=== PATIENT | male | born 1960 | race African-American/Black ===

== ENCOUNTER 2021-11-01 17:13 | Emergency (ER) | payer OTHER ==
[~2021-11-01] VITALS: Ht 175.3 cm; Wt 118.2 kg
[2021-11-01] MEDS ORDERED: MethylPREDNISolone SOD SUCC 125 MG/2 ML VIAL IVP ONE (17:45)
[2021-11-01] MEDS ORDERED: IPRATROPIUM BROMIDE 0.5 MG/2.5 ML NEB SOLUTION NEB ONE (17:45)
[2021-11-01] MEDS ORDERED: ALBUTEROL SULFATE 5 MG/ML 20 ML NEB SOLN [BULK] NEB ONE (17:45)
[2021-11-01] MEDS ORDERED: FUROSEMIDE 40 MG/4 ML VIAL IVP ONE (17:45)
[2021-11-01 17:51] LABS: BASOPHILS % (AUTO) 0.3 % (0.0-2.0); COVID AG,FIA SOURCE NASOPHARYNGEAL; EOSINOPHILS % (AUTO) 1.5 % (1.0-6.0); HEMOGLOBIN 12.1 g/dL (13.5-17.5); LYMPHOCYTES # (AUTO) 0.8 K/uL (1.0-4.8); LYMPHOCYTES % (AUTO) 13.1 % (22.0-44.0); MEAN CORPUSCULAR HEMOGLOBIN 28.9 pg (26.0-34.0); MEAN CORPUSCULAR HGB CONC 32.7 G/dL (31.0-37.0); MEAN CORPUSCULAR VOLUME 88 fL (80-100); MONOCYTES # (AUTO) 0.3 K/uL (0.1-1.0); NEUTROPHILS # (AUTO) 4.8 K/uL (1.8-7.7); NEUTROPHILS % (AUTO) 80.1 % (40.0-70.0); PLATELET COUNT (AUTO) 127 K/uL (150-450); RED CELL DISTRIBUTION WIDTH 16.4 % (11.5-14.5)
[2021-11-01] MEDS ORDERED: 0.9% SODIUM CHLORIDE 15 ML NEB SOLUTION NEB ONE (17:55)
[2021-11-01 17:59] LABS: CALCIUM, TOTAL 8.7 mg/dL (8.8-10.5); CREATININE 2.21 mg/dL (0.60-1.30)
[2021-11-01 18:05] LABS: ALBUMIN 2.9 g/dL (3.4-5.0); BILIRUBIN,TOTAL 0.9 mg/dL (0.1-1.0)
[2021-11-01 18:10] LABS: LACTIC ACID 1.5 mmol/L (0.4-2.0)
[2021-11-01 18:18] LABS: INFLUENZA TYPE A NEGATIVE FOR TYPE A (NEGATIVE); INFLUENZA TYPE B NEGATIVE FOR TYPE B (NEGATIVE)
[2021-11-01] MEDS: OXYGEN THERAPY IH SCH (19:17)
[2021-11-01] MEDS ORDERED: ASPIRIN 325 MG TABLET PO ONE (20:30)
[2021-11-01 20:39] LABS: ABG BASE EXCESS 1.4 mmol/L (-2.0-3.0); ABG CARBOXYHEMOGLOBIN 1.1 % (0.0-1.5); ABG HCO3 24.2 mmol/L (22.0-26.0); ABG METHEMOGLOBIN 0.2 % (0.0-1.5); ABG OXYGEN CONTENT 16.8 mL/dL (15.0-23.0); ABG OXYGEN SATURATION 91.7 % (95.0-98.0); ABG OXYHEMOGLOBIN 90.5 % (94.0-100.0); ABG PCO2 67 mmHg (35-45); ABG PH 7.249 (7.35-7.450); ABG TOTAL HEMOGLOBIN 13.2 G/dL (12.0-18.0); PO2, ARTERIAL BG 73.5 mmHg (84.0-92.0); SITE, BLOOD GAS RT RADIAL; SOURCE, BLOOD GAS ARTERIAL; TEMPERATURE, FAHRENHEIT, BG 98.6 FAHREN (96.0-98.6)
[2021-11-01 20:40] LABS: O2 DEVICE,BLOOD GAS CANNULA (ROOM AIR)
[2021-11-01] MEDS ORDERED: ACETAMINOPHEN 325 MG TABLET PO PRN (21:00)
[2021-11-01] MEDS ORDERED: 0.9% SODIUM CHLORIDE 10 ML SYRINGE IVP PRN (21:00)
[2021-11-01] MEDS ORDERED: ONDANSETRON HCL 4 MG/2 ML VIAL IVP PRN (21:00)
[2021-11-02] MEDS ORDERED: 0.9% SODIUM CHLORIDE 5 ML NEB SOLUTION NEB ONE (02:04)
[2021-11-02] MEDS: ALBUTEROL SULFATE 2.5 MG/0.5 ML NEB SOLUTION NEB SCH ×2 (02:10→07:22)
[2021-11-02 05:19] LABS: BASOPHILS % (AUTO) 0.1 % (0.0-2.0); EOSINOPHILS % (AUTO) 0.1 % (1.0-6.0); HEMOGLOBIN 12.7 g/dL (13.5-17.5); LYMPHOCYTES # (AUTO) 0.2 K/uL (1.0-4.8); LYMPHOCYTES % (AUTO) 2.1 % (22.0-44.0); MEAN CORPUSCULAR HGB CONC 32.7 G/dL (31.0-37.0); MEAN CORPUSCULAR VOLUME 89 fL (80-100); MONOCYTES # (AUTO) 0.1 K/uL (0.1-1.0); NEUTROPHILS # (AUTO) 7.1 K/uL (1.8-7.7); PLATELET COUNT (AUTO) 137 K/uL (150-450); RED BLOOD CELL COUNT(AUTO) 4.39 MIL/uL (4.50-5.90); RED CELL DISTRIBUTION WIDTH 16.5 % (11.5-14.5)
[2021-11-02 05:22] LABS: NEUTROPHILS % (AUTO) 95.7 % (40.0-70.0)
[2021-11-02 05:33] LABS: BILIRUBIN,TOTAL 0.4 mg/dL (0.1-1.0); CALCIUM, TOTAL 8.6 mg/dL (8.8-10.5); CREATININE 2.41 mg/dL (0.60-1.30); POTASSIUM 5.8 mmol/L (3.5-5.1); TOTAL PROTEIN, SERUM 6.3 g/dL (6.4-8.2)
[2021-11-02] MEDS: OXYGEN THERAPY IH SCH (07:29)
[2021-11-02] MEDS ORDERED: OxyCODONE HCL/ACETAMINOPHEN 5-325 MG TABLET PO PRN (11:45)
[2021-11-02] MEDS ORDERED: ONDANSETRON HCL 4 MG/2 ML VIAL IVP PRN (11:45)
[2021-11-02] MEDS ORDERED: MORPHINE SULFATE 2 MG/ML SYRINGE IVP PRN (11:45)
[2021-11-02] MEDS ORDERED: ACETAMINOPHEN 325 MG TABLET PO PRN (11:45)
[2021-11-02] MEDS ORDERED: BISACODYL 10 MG RECTAL RECTAL SUPPOSITORY PR PRN (11:45)
[2021-11-02] MEDS ORDERED: DEXTROSE 50%-WATER 25 GM/50 ML SYRINGE IVP PRN (11:45)
[2021-11-02] MEDS ORDERED: INSULIN LISPRO 100 UNITS/ML SQ PRN (11:45)
[2021-11-02] MEDS ORDERED: MAGNESIUM HYDROXIDE SUSPENSION 30 ML UDCUP PO PRN (11:45)
[2021-11-02] MEDS ORDERED: ALBUTEROL SULFATE 2.5 MG/0.5 ML NEB SOLUTION NEB PRN (11:45)
[2021-11-02] MEDS ORDERED: ZOLPIDEM TARTRATE 5 MG TABLET PO PRN (11:45)
[2021-11-02] MEDS ORDERED: IPRATROPIUM BROMIDE 0.5 MG/2.5 ML NEB SOLUTION NEB PRN (11:45)
[2021-11-02] MEDS ORDERED: PredniSONE 20 MG TABLET PO ONE (12:00)
[2021-11-02] MEDS ORDERED: MethylPREDNISolone SOD SUCC 125 MG/2 ML VIAL IVP SCH (12:00)
[2021-11-02] MEDS ORDERED: HydrALAZINE HCL 20 MG/ML VIAL IVP ONE (12:15)
[2021-11-02] MEDS ORDERED: AmLODIPine BESYLATE 10 MG TABLET PO ONE (12:15)
[2021-11-02 13:00] VITALS: BP 164/99
[2021-11-02] MEDS ORDERED: IPRATROPIUM BROMIDE 0.5 MG/2.5 ML NEB SOLUTION NEB SCH (15:00)
[2021-11-02] MEDS ORDERED: ALBUTEROL SULFATE 2.5 MG/0.5 ML NEB SOLUTION NEB SCH (15:00)
[2021-11-02] MEDS ORDERED: HEPARIN SODIUM,PORCINE 5,000 UNITS/ML VIAL SQ SCH (16:00)
[2021-11-02] MEDS ORDERED: DOCUSATE SODIUM 100 MG CAPSULE PO SCH (21:00)
[2021-11-03] MEDS ORDERED: PANTOPRAZOLE SODIUM 40 MG DR TABLET PO SCH (09:00)
== END 2021-11-02 13:52 | disposition home or self-care (01) ==
LOC: EMS 17:17
DX: J96.00 Acute respiratory failure, unspecified whether with hypoxia or hypercapnia (principal); J45.909 Unspecified asthma, uncomplicated; Z20.822 Contact with and (suspected) exposure to COVID-19; Z79.899 Other long term (current) drug therapy
CPT/HCPCS: 36415; 71045; 80053; 82805; 83605; 83690; 83880; 84484; 85025; 87040; 87426; 87804; 93005; 94640; 94660; 96374; 96375; 99285; G0480; J1940; J2930; J7512; J7611; J7613

== ENCOUNTER 2022-07-30 23:54 | Inpatient (IN) | payer OTHER ==
[~2022-07-30] VITALS: Ht 177.8 cm; Wt 113.4 kg
[2022-07-31] MEDS ORDERED: FUROSEMIDE 40 MG/4 ML VIAL IVP ONE
[2022-07-31] MEDS ORDERED: NITROGLYCERIN 2% (1 GM=INCH) OINTMENT PACKET TP ONE
[2022-07-31 00:16] LABS: BASOPHILS % (AUTO) 0.8 % (0.0-2.0); EOSINOPHILS % (AUTO) 2.5 % (1.0-6.0); HEMATOCRIT 40.3 % (41-53); HEMOGLOBIN 13.3 g/dL (13.5-17.5); LYMPHOCYTES # (AUTO) 1.1 K/uL (1.0-4.8); LYMPHOCYTES % (AUTO) 14.3 % (22.0-44.0); MEAN CORPUSCULAR HEMOGLOBIN 30.8 pg (26.0-34.0); MEAN CORPUSCULAR VOLUME 93 fL (80-100); MONOCYTES # (AUTO) 0.4 K/uL (0.1-1.0); MONOCYTES % (AUTO) 5.2 % (2.0-9.0); NEUTROPHILS % (AUTO) 77.2 % (40.0-70.0); PLATELET COUNT (AUTO) 151 K/uL (150-450); RED BLOOD CELL COUNT(AUTO) 4.32 MIL/uL (4.50-5.90); RED CELL DISTRIBUTION WIDTH 15.1 % (11.5-14.5)
[2022-07-31 00:25] LABS: CALCIUM, TOTAL 8.7 mg/dL (8.8-10.5); CREATININE 2.22 mg/dL (0.60-1.30); POTASSIUM 4.5 mmol/L (3.5-5.1)
[2022-07-31 00:34] LABS: PROTHROMBIN TIME 11.1 SEC (9.4-11.6)
[2022-07-31 00:50] LABS: ALBUMIN 3.2 g/dL (3.4-5.0); BILIRUBIN,TOTAL 0.6 mg/dL (0.1-1.0); TOTAL PROTEIN, SERUM 6.3 g/dL (6.4-8.2)
[2022-07-31 00:58] LABS: ABG CARBOXYHEMOGLOBIN 0.7 % (0.0-1.5); ABG HCO3 23.9 mmol/L (22.0-26.0); ABG METHEMOGLOBIN 0.4 % (0.0-1.5); ABG OXYGEN CONTENT 19.3 mL/dL (15.0-23.0); ABG OXYGEN SATURATION 99.4 % (95.0-98.0); ABG OXYHEMOGLOBIN 98.3 % (94.0-100.0); ABG PCO2 53 mmHg (35-45); ABG PH 7.311 (7.35-7.450); ABG TOTAL HEMOGLOBIN 13.1 G/dL (12.0-18.0); PO2, ARTERIAL BG 457.2 mmHg (84.0-92.0); SOURCE, BLOOD GAS ARTERIAL; TEMPERATURE, FAHRENHEIT, BG 98.6 FAHREN (96.0-98.6)
[2022-07-31 01:01] LABS: SITE, BLOOD GAS RT RADIAL
[2022-07-31 01:02] LABS: O2 DEVICE,BLOOD GAS BIPAP (ROOM AIR)
[2022-07-31] MEDS ORDERED: IPRATROPIUM BROMIDE 0.5 MG/2.5 ML NEB SOLUTION NEB ONE (02:15)
[2022-07-31] MEDS ORDERED: ALBUTEROL SULFATE 2.5 MG/0.5 ML NEB SOLUTION NEB ONE (02:15)
[2022-07-31] MEDS ORDERED: ACETAMINOPHEN 325 MG TABLET PO PRN (02:45)
[2022-07-31] MEDS ORDERED: ONDANSETRON HCL 4 MG/2 ML VIAL IVP PRN (02:45)
[2022-07-31] MEDS ORDERED: ALBUTEROL SULFATE 2.5 MG/0.5 ML NEB SOLUTION NEB PRN (02:45)
[2022-07-31] MEDS ORDERED: DEXTROSE 50%-WATER 25 GM/50 ML SYRINGE IVP PRN (02:45)
[2022-07-31] MEDS ORDERED: IPRATROPIUM BROMIDE 0.5 MG/2.5 ML NEB SOLUTION NEB PRN (02:45)
[2022-07-31 03:04] LABS: COVID AG,FIA SOURCE NASOPHARYNGEAL
[2022-07-31 04:04] LABS: APPEARANCE,URINE CLEAR (CLEAR); BILIRUBIN,URINE NEGATIVE (NEGATIVE); GLUCOSE, URINE (UA) NEGATIVE (NEGATIVE); KETONES,URINE NEGATIVE (NEGATIVE); LEUKOCYTE ESTERASE ,URINE NEGATIVE (NEGATIVE); NITRATE,URINE NEGATIVE (NEGATIVE); OCCULT BLOOD,URINE NEGATIVE (NEGATIVE); PROTEIN,URINE 100-200,SEE CONFIRM mg/dL (NEGATIVE); SPECIFIC GRAVITIY, URINE 1.008 (1.003-1.030); UROBILINOGEN,URINE <=1.0 mg/dL (<=1.0)
[2022-07-31 04:22] LABS: BACTERIA,URINE None Seen /HPF (None Seen); RBC,URINE None Seen /HPF (0-2); SQUAMOUS EPITHELIAL CELL,UR Few /LPF (None Seen); SULFOSALICYLIC ACID,URINE 2+ (Negative); WBC,URINE None Seen /HPF (0-5)
[2022-07-31] MEDS: CefTRIAXone 1 GM/DEXTROSE 50 ML IV SCH (05:30)
[2022-07-31 06:19] LABS: ABG CARBOXYHEMOGLOBIN 0.4 % (0.0-1.5); ABG HCO3 26.4 mmol/L (22.0-26.0); ABG METHEMOGLOBIN 0.3 % (0.0-1.5); ABG OXYGEN CONTENT 15.6 mL/dL (15.0-23.0); ABG OXYGEN SATURATION 85.7 % (95.0-98.0); ABG OXYHEMOGLOBIN 85.1 % (94.0-100.0); ABG PCO2 63 mmHg (35-45); ABG PH 7.303 (7.35-7.450); PO2, ARTERIAL BG 57.1 mmHg (84.0-92.0); SOURCE, BLOOD GAS ARTERIAL; TEMPERATURE, FAHRENHEIT, BG 98.6 FAHREN (96.0-98.6)
[2022-07-31 06:22] LABS: SITE, BLOOD GAS RT RADIAL
[2022-07-31 06:23] LABS: O2 DEVICE,BLOOD GAS BIPAP (ROOM AIR)
[2022-07-31] MEDS: AZITHROMYCIN 500 MG/NS 250 ML IV SCH (06:23)
[2022-07-31] MEDS: HEPARIN SODIUM,PORCINE 5,000 UNITS/ML VIAL SQ SCH ×3 (07:56→23:03)
[2022-07-31] MEDS: FUROSEMIDE 40 MG/4 ML VIAL IVP SCH ×2 (09:10→20:41)
[2022-07-31 12:00] VITALS: BP 151/90
[2022-07-31] MEDS: MethylPREDNISolone SOD SUCC 125 MG/2 ML VIAL IVP SCH ×3 (12:30→23:03)
[2022-07-31 13:11] LABS: GLUCOSE,POINT OF CARE 102 MG/DL (70-110)
[2022-07-31] MEDS ORDERED: AmLODIPine BESYLATE 10 MG TABLET PO ONE (14:15)
[2022-07-31] MEDS: LOSARTAN POTASSIUM 25 MG TABLET PO SCH ×2 (14:34→20:41)
[2022-07-31] MEDS: CloNIDine HCL 0.1 MG TABLET PO PRN (15:24)
[2022-07-31 16:00] VITALS: BP 158/107
[2022-07-31 20:00] VITALS: BP 168/104
[2022-07-31 20:01] LABS: GLUCOSE,POINT OF CARE 119 MG/DL (70-110)
[2022-07-31] MEDS: METOPROLOL TARTRATE 25 MG TABLET PO SCH (20:41)
[2022-07-31] MEDS: INSULIN LISPRO 100 UNITS/ML SQ PRN (22:18)
[2022-07-31 22:36] LABS: GLUCOSE,POINT OF CARE 221 MG/DL (70-110)
[2022-08-01] VITALS: BP 155/97
[2022-08-01] MEDS: CloNIDine HCL 0.1 MG TABLET PO PRN ×2 (03:57→23:05)
[2022-08-01 04:00] VITALS: BP 162/101
[2022-08-01] MEDS ORDERED: SODIUM CHLORIDE 0.9% 250 ML IV ONE (05:05)
[2022-08-01] MEDS: CefTRIAXone 1 GM/DEXTROSE 50 ML IV SCH (05:07)
[2022-08-01 06:01] LABS: GLUCOSE,POINT OF CARE 212 MG/DL (70-110)
[2022-08-01] MEDS: AZITHROMYCIN 500 MG/NS 250 ML IV SCH (06:01)
[2022-08-01] MEDS: MethylPREDNISolone SOD SUCC 125 MG/2 ML VIAL IVP SCH ×4 (06:02→23:04)
[2022-08-01 06:17] LABS: EOSINOPHILS % (AUTO) 0 % (1.0-6.0); HEMATOCRIT 37.6 % (41-53); HEMOGLOBIN 12.4 g/dL (13.5-17.5); LYMPHOCYTES # (AUTO) 0.2 K/uL (1.0-4.8); LYMPHOCYTES % (AUTO) 3.5 % (22.0-44.0); MEAN CORPUSCULAR HEMOGLOBIN 30.5 pg (26.0-34.0); MEAN CORPUSCULAR HGB CONC 33.1 G/dL (31.0-37.0); MEAN CORPUSCULAR VOLUME 92 fL (80-100); MONOCYTES # (AUTO) 0.1 K/uL (0.1-1.0); MONOCYTES % (AUTO) 1.1 % (2.0-9.0); NEUTROPHILS # (AUTO) 6.5 K/uL (1.8-7.7); PLATELET COUNT (AUTO) 144 K/uL (150-450); RED BLOOD CELL COUNT(AUTO) 4.08 MIL/uL (4.50-5.90); RED CELL DISTRIBUTION WIDTH 14.2 % (11.5-14.5)
[2022-08-01 06:23] LABS: CALCIUM, TOTAL 8.3 mg/dL (8.8-10.5); CREATININE 2.14 mg/dL (0.60-1.30); MAGNESIUM 1.8 mg/dL (1.80-2.40)
[2022-08-01 06:53] LABS: NEUTROPHILS % (AUTO) 95.4 % (40.0-70.0)
[2022-08-01 08:00] VITALS: BP 158/91
[2022-08-01] MEDS: FUROSEMIDE 40 MG/4 ML VIAL IVP SCH ×2 (08:31→20:15)
[2022-08-01] MEDS: METOPROLOL TARTRATE 25 MG TABLET PO SCH ×2 (08:31→20:15)
[2022-08-01] MEDS: HEPARIN SODIUM,PORCINE 5,000 UNITS/ML VIAL SQ SCH ×3 (08:31→23:05)
[2022-08-01] MEDS: LOSARTAN POTASSIUM 25 MG TABLET PO SCH (08:31)
[2022-08-01] MEDS ORDERED: LOSARTAN POTASSIUM 50 MG TABLET PO SCH (09:00)
[2022-08-01] MEDS ORDERED: METOPROLOL TARTRATE 25 MG TABLET PO SCH (09:00)
[2022-08-01 12:00] VITALS: BP 159/91
[2022-08-01 16:00] VITALS: BP 155/92
[2022-08-01] MEDS: INSULIN LISPRO 100 UNITS/ML SQ PRN (17:35)
[2022-08-01 18:11] LABS: GLUCOSE,POINT OF CARE 197 MG/DL (70-110)
[2022-08-01 18:12] LABS: GLUCOSE,POINT OF CARE 193 MG/DL (70-110)
[2022-08-01 20:00] VITALS: BP 164/105
[2022-08-01] MEDS: LOSARTAN POTASSIUM 50 MG TABLET PO SCH (20:15)
[2022-08-01 21:21] LABS: GLUCOSE,POINT OF CARE 234 MG/DL (70-110)
[2022-08-02] VITALS: BP 165/110
[2022-08-02 04:00] VITALS: BP 157/116
[2022-08-02] MEDS: CefTRIAXone 1 GM/DEXTROSE 50 ML IV SCH (05:13)
[2022-08-02] MEDS: INSULIN LISPRO 100 UNITS/ML SQ PRN (05:34)
[2022-08-02] MEDS: MethylPREDNISolone SOD SUCC 125 MG/2 ML VIAL IVP SCH (05:35)
[2022-08-02] MEDS: AZITHROMYCIN 500 MG/NS 250 ML IV SCH (05:45)
[2022-08-02 08:00] VITALS: BP 174/58
[2022-08-02] MEDS: FUROSEMIDE 40 MG/4 ML VIAL IVP SCH (08:46)
[2022-08-02] MEDS: AmLODIPine BESYLATE 10 MG TABLET PO SCH ×2 (08:46→08:47)
[2022-08-02] MEDS: METOPROLOL TARTRATE 25 MG TABLET PO SCH (08:46)
[2022-08-02] MEDS: LOSARTAN POTASSIUM 50 MG TABLET PO SCH (08:46)
[2022-08-02] MEDS: HEPARIN SODIUM,PORCINE 5,000 UNITS/ML VIAL SQ SCH (08:46)
[2022-08-02 12:47] LABS: GLUCOSE,POINT OF CARE 190 MG/DL (70-110)
== END 2022-08-02 11:00 | disposition left against medical advice (07) | DRG 193 ==
LOC: EMS 23:56 → ICUN 07-31 04:38 → ICU 07-31 10:01
PROVIDERS: ADMIT Internal Medicine; ATTEND Internal Medicine
PROC: 5A09457 Assistance with Respiratory Ventilation, 24-96 Consecutive Hours, Continuous Positive Airway Pressure (ICD-10-PCS; principal; 2022-07-30)
DX: J18.9 Pneumonia, unspecified organism (principal); J96.01 Acute respiratory failure with hypoxia; J96.02 Acute respiratory failure with hypercapnia; N18.4 Chronic kidney disease, stage 4 (severe); E87.29 Other acidosis; I13.0 Hypertensive heart and chronic kidney disease with heart failure and stage 1 through stage 4 chronic kidney disease, or unspecified chronic kidney disease; J44.1 Chronic obstructive pulmonary disease with (acute) exacerbation; J45.901 Unspecified asthma with (acute) exacerbation; E66.01 Morbid (severe) obesity due to excess calories; E11.22 Type 2 diabetes mellitus with diabetic chronic kidney disease; Z20.822 Contact with and (suspected) exposure to COVID-19; I50.9 Heart failure, unspecified; E78.5 Hyperlipidemia, unspecified; Z88.8 Allergy status to other drugs, medicaments and biological substances; Z82.49 Family history of ischemic heart disease and other diseases of the circulatory system; Z82.5 Family history of asthma and other chronic lower respiratory diseases; Z83.3 Family history of diabetes mellitus
CPT/HCPCS: 71045; 71250; 80048; 80053; 81001; 81002; 82550; 82805; 82962; 83605; 83735; 83880; 84145; 84484; 85025; 85610; 85730; 87040; 87081; 93005; 93306; 94640; 94660; 99291; G0378; J0456; J0696; J1644; J1940; J2930; J7050; 36415-L1; 36415-TC; 82803-TC; J7613